=== PATIENT | female | born 1960 | race Caucasian/White ===

== ENCOUNTER 2025-02-06 09:04 | Emergency (ER) | payer BC ==
[~2025-02-06] VITALS: Ht 162.6 cm; Wt 78.5 kg
[~2025-02-06 09:04] MED LIST: ELIQ5TAB PO
[2025-02-06] MEDS: FAMOTIDINE 20 MG/2 ML VIAL IVP ONE (11:51)
[2025-02-06] MEDS: NS (Normal Saline) 0.9% 1,000 ML IV ONE (11:52)
[2025-02-06] MEDS: diphenhydrAMINE 50 MG/ML VIAL IV ONE (11:52)
[2025-02-06] MEDS: RIVAROXABAN 15MG TAB PO ONE ×2 (13:04→14:16)
[2025-02-06] MEDS ORDERED: XARE15TA PO (13:48)
[2025-02-06] MEDS ORDERED: PRED10TA2 PO (13:57)
[2025-02-06 14:14] VITALS: TEMP 97.7; O2SAT 97
[2025-02-06 14:31] VITALS: BP 123/73
== END 2025-02-06 14:30 | disposition home or self-care (01) ==
LOC: M ED 09:04
DX: T88.7XXA Unspecified adverse effect of drug or medicament, initial encounter (principal); Z86.711 Personal history of pulmonary embolism; Z79.01 Long term (current) use of anticoagulants; Z88.8 Allergy status to other drugs, medicaments and biological substances; Z91.030 Bee allergy status
CPT/HCPCS: 96361; 96374; 96375; 99284; J1200; J1308; J2919